=== PATIENT | female | born 1960 | race Caucasian/White ===

== ENCOUNTER → 2016-03-28 17:07 | Outpatient (CLI) | payer BC | END | disposition home or self-care (01) | LOC: D.MAMMO 02-29 16:00 | DX: Z12.31 Encounter for screening mammogram for malignant neoplasm of breast (principal) ==

== ENCOUNTER → 2017-05-22 17:56 | Outpatient (CLI) | payer BC | END | disposition home or self-care (01) | LOC: D.MAMMO 10:00 | DX: Z12.31 Encounter for screening mammogram for malignant neoplasm of breast (principal) ==